=== PATIENT | female | born 1965 | race Caucasian/White ===

== ENCOUNTER 2022-10-09 12:31 | Day surgery (SDC) | payer BC ==
[2022-10-09] MEDS ORDERED: Lactated Ringers 1,000 ML IV SCH (13:30)
[2022-10-09] MEDS ORDERED: Xylocaine-Mpf 2% 5 Ml Vial ONE (13:48)
[2022-10-09] MEDS ORDERED: DIPRIVAN 200 MG/20 ML IV ONE ×7 (13:48→14:55)
[2022-10-09] MEDS ORDERED: Versed 2 MG/2 ML Injection ONE (13:48)
[2022-10-09] MEDS ORDERED: Lactated Ringers 1,000 ML IV ONE (14:36)
[2022-10-09] MEDS ORDERED: Ketamine HCl 50 MG/ML ONE (14:40)
[2022-10-09 16:03] VITALS: PULSE 55
[2022-10-09 16:15] VITALS: BP 158/80; O2SAT 98
--- NOTE | 2022-10-10 10:18 | OP ---
PROCEDURE DATE/TIME: 10/09/2022 0815 PREOPERATIVE DIAGNOSIS: Surveillance history of polyps. POSTOPERATIVE DIAGNOSES: 1) Tortuous colon polyp. 2) Incomplete colonoscopy. PROCEDURES: 1) Colonoscopy with hot snare polypectomy. 2) Cold snare polypectomy. 3) Cold forceps polypectomy to the level of the proximal ascending colon. PROCEDURE PERFORMED BY: Malini Becker M.D. ANESTHESIA: MAC. ESTIMATED BLOOD LOSS: Minimal. COMPLICATIONS: No acute complications. Unable to visualize the cecum fully. SPECIMENS: 1) Splenic flexure polyp. 2) Descending colon polyp. 3) Rectal polyp. HISTORY: This is a 57-year-old female who presents for surveillance colonoscopy. She said she has had a colonoscopy in the past with polyps. She is having no symptoms currently. H&P and consent reviewed with her and confirmed. All questions answered to the patient's satisfaction. DESCRIPTION OF PROCEDURE: She is then brought to the endoscopy suite, laid in the left lateral decubitus position. A complete time out performed. First, a rectal exam was done. The patient had normal hemorrhoidal tissue. The scope was then inserted and gently advanced towards the cecum. We initially used a pediatric colonoscope. The colon appeared to be very tortuous and this appeared to be the most significant in the transverse colon. Despite patient positioning and abdominal pressure, we were not able to advance any further with the pediatric scope and we did continue to keep running out of length as well due to the tortuosity. As we withdrew the scope, I was able to find three polyps. There was approximate 6 to 7 mm polyp in the splenic flexure that was taken with hot snare. It was retrieved with forceps and I did place a clip as the site bled easily with clip placement. The site is very hemostatic and the polyp has been removed in entirety. There was also a smaller polyp in the descending colon which was less than 5 mm taken with cold snare in entirety and then there was a small rectal polyp approximately 1 to 2 mm that was semi-sessile and taken with cold forceps in entirety. We removed the scope and then we replaced a larger adult scope to attempt to be further. We slowly advanced the scope. I believe we were getting to the level of the proximal ascending colon. In the distance it looks like we are seeing the edge of the ileocecal valve but I did not get to fully verify this or see the cecum. We tried multiple maneuvers, patient positioning as well as abdominal pressure and despite this I am unable to see the cecum. As we withdrew the scope, the colon overall looked healthy. I did see our polypectomy sites and these are all very hemostatic and look good. There are no other polyps remaining in the colonic mucosa that we can see. Overall, the prep was satisfactory using an Aronchick score. She did have some thick liquid stool in the colon that we did have to irrigate and she does have some tortuosity in her colon again most notably in the transverse colon. We then further withdrew the scope. PLAN: I think that if we start with an adult scope, we may be able to see the cecum in the patient despite the tortuosity. I discussed this with her family member postoperatively and I think the chance to get to the cecum would be around 85 to 90% once we place the adult scope. We have removed polyps and she did have some spasm at that time and she had already had all of the insufflation so I do think that starting with the adult scope of the bat maybe extremely helpful. The other option I discussed with them is that we could do a barium enema due to the incomplete scope and we will decide at our next appointment which of these two procedures she would prefer. She did very well. There were no complications. She did very well with anesthesia and she will be following up with me as an outpatient to discuss the pathology results as well. If she does elect to do a barium enema and this is negative I would still recommend a colonoscopy in a minimum of three years due to her findings of multiple polyps.
== END 2022-10-09 16:35 | disposition home or self-care (01) ==
LOC: EDBD → SDC 12:31
PROVIDERS: ATTEND Surgery
DX: Z09 Encounter for follow-up examination after completed treatment for conditions other than malignant neoplasm (principal); Z86.010 Personal history of colon polyps; E11.9 Type 2 diabetes mellitus without complications; D12.7 Benign neoplasm of rectosigmoid junction; D12.4 Benign neoplasm of descending colon; D12.3 Benign neoplasm of transverse colon
CPT/HCPCS: 82947; J2250; J2704